=== PATIENT | female | born 1970 | race Caucasian/White ===

== ENCOUNTER 2021-12-02 08:00 | Outpatient (CLI) | payer OTHER ==
--- NOTE | 2021-12-02 17:05 | XRAY Report ---
PROCEDURE: Chest 2 View X-Ray INDICATIONS: SHORTNESS OF BREATH TECHNIQUE: 2 view(s) of the chest. COMPARISON: None. FINDINGS: Surgical changes and devices: ACDF in the lower cervical spine.. Lungs and pleura: No pleural effusions or pneumothorax. Lungs are clear. Mediastinum: Mediastinal contours are normal. Heart size is normal. Bones and chest wall: No suspicious bony abnormalities. Soft tissues appear unremarkable. IMPRESSION: No acute cardiopulmonary abnormality. Reviewed by: Tyler Del Rosario on 12/02/2021 4:03 PM ARIANNE Approved by: Tyler Del Rosario on 12/02/2021 4:03 PM ARIANNE Station ID: [id number]
== END 2021-12-02 23:59 | disposition home or self-care (01) ==
LOC: DI.S 08:00
PROVIDERS: ATTEND Physician Assistant
DX: R06.02 Shortness of breath (principal)

== ENCOUNTER 2022-08-04 08:42 | Outpatient (CLI) | payer OTHER | END 2022-08-04 23:45 | disposition critical access hospital (66) | LOC: EMS 08:42 | DX: M54.2 Cervicalgia (principal); V48.5XXA Car driver injured in noncollision transport accident in traffic accident, initial encounter; Y92.413 State road as the place of occurrence of the external cause | CPT/HCPCS: A0425; A0429 ==

== ENCOUNTER 2022-08-04 08:59 | Emergency (ER) | payer OTHER ==
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
[2022-08-04 09:52] VITALS: BP 148/99
== END 2022-08-04 09:53 | disposition home or self-care (01) ==
LOC: EDUNIT# → ED 08:59
DX: Z04.1 Encounter for examination and observation following transport accident (principal); V49.3XXA Car occupant (driver) (passenger) injured in unspecified nontraffic accident, initial encounter
CPT/HCPCS: 99282; 99283

== ENCOUNTER 2022-10-08 16:14 | Outpatient (CLI) | payer OTHER ==
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
== END 2022-10-08 16:15 | disposition home or self-care (01) ==
LOC: DI.S 16:14
PROVIDERS: ATTEND Chiropractor
DX: M47.817 Spondylosis without myelopathy or radiculopathy, lumbosacral region (principal); M43.16 Spondylolisthesis, lumbar region; M43.17 Spondylolisthesis, lumbosacral region; M47.816 Spondylosis without myelopathy or radiculopathy, lumbar region

== ENCOUNTER 2022-11-07 12:16 | Emergency (ER) | payer OTHER ==
[2022-11-07 12:46] LABS: BASOPHILS % (AUTO) 0.3 %; EOSINOPHILS # (AUTO) 0.1 10^3/uL (0.0-0.7); EOSINOPHILS % (AUTO) 0.7 %; HCT - HEMATOCRIT 41.5 % (37.0-47.0); LYMPHOCYTES # (AUTO) 2.3 10^3/uL (1.5-3.5); LYMPHOCYTES % (AUTO) 15.9 %; MEAN CORPUSCULAR HGB CONC 33.7 g/dL (32.0-36.0); MEAN CORPUSCULAR VOLUME 91.8 fL (81.0-99.0); MEAN PLATELET VOLUME 10.7 fL (7.9-10.8); MONOCYTES # (AUTO) 1.2 10^3/uL (0.0-1.0); MONOCYTES % (AUTO) 8.3 %; NEUTROPHILS % (AUTO) 74.4 %; PLT - PLATELET COUNT 316 10^3/uL (130-450); RED BLOOD COUNT 4.52 10^6/uL (4.20-5.40); RED CELL DISTRIBUTION WIDTH 12.3 % (12.0-15.0); WHITE BLOOD COUNT 14.7 x10^3/uL (4.8-10.8)
[2022-11-07 12:51] LABS: ALBUMIN 4.5 g/dL (3.2-5.5); ALBUMIN/GLOBULIN RATIO 1.5 (1.0-2.2); BILIRUBIN,TOTAL 1.3 mg/dL (0.2-1.0); CALCIUM 9.5 mg/dL (8.5-10.3); CREATININE 0.8 mg/dL (0.4-1.0); POTASSIUM 3.8 mmol/L (3.5-5.0); TOTAL PROTEIN 7.5 g/dL (6.7-8.2)
[2022-11-07] MEDS ORDERED: KETOROLAC 15 MG/ML VIAL IVP STA (13:00)
--- NOTE | 2022-11-07 13:01 | ED Physician Documentation ---
PD HPI ABD PAIN - Stated complaint Stated Complaint: ABD PX - Chief complaint Chief Complaint: Abd Pain - History obtained from History obtained from: Patient - Additional information Additional information: 52-year-old woman has had chronic issues with abdominal pain which is more severe over the last 2 days. It is in the left lower quadrant and very sharp. Hurts to walk or bend over. She has chronically abnormal bowel movements and was post to have a colonoscopy a few years ago for it but "chickened out" because she does not like medical stuff. She denies fevers or chills but does feel hot with this. PD PAST MEDICAL HISTORY - Present Medications Home Medications: Ambulatory Orders Medication Instructions Recorded Confirmed Amox/Clav 875/125 [Augmentin] 1 each PO TID #21 tablet 11/07/22 - Allergies Allergies/Adverse Reactions: Allergies Allergy/AdvReac Type Severity Reaction Status Date / Time No Known Drug Allergies Allergy Verified 08/04/22 09:18 PD ED PE NORMAL - Vitals Vital signs reviewed: Yes - General General: Alert and oriented X 3, No acute distress - Abdomen Abdomen: Other (Decreased bowel sounds and somewhat distended with moderate tenderness in the left lower quadrant without surgical signs.) - Back Back: No spinal TTP - Derm Derm: No rash - Neuro Neuro: Alert and oriented X 3, Normal speech Results - Vitals Vitals: Vital Signs - 24 hr 11/07/22 11/07/22 12:23 14:46 Temperature 36.9 C 37.2 C Heart Rate 90 95 Respiratory 18 18 Rate Blood Pressure 137/105 H 152/97 H O2 Saturation 97 100 Oxygen O2 Source Room air - Labs Labs: Laboratory Tests 11/07/22 11/07/22 11/07/22 12:35 12:35 13:24 WBC 14.7 H RBC 4.52 Hgb 14.0 Hct 41.5 MCV 91.8 MCH 31.0 MCHC 33.7 RDW 12.3 Plt Count 316 MPV 10.7 Neut # (Auto) 11.0 H Lymph # (Auto) 2.3 [place] # (Auto) 1.2 H Eos # (Auto) 0.1 Baso # (Auto) 0.0 Absolute Nucleated RBC 0.00 Nucleated RBC % 0.0 Sodium 138 Potassium 3.8 Chloride 101 Carbon Dioxide 29 Anion Gap 8.0 BUN 11 Creatinine 0.8 Estimated GFR (MDRD) 76 L Glucose 109 H Calcium 9.5 Total Bilirubin 1.3 H AST 103 H ALT 89 H Alkaline Phosphatase 53 Total Protein 7.5 Albumin 4.5 Globulin 3.0 Albumin/Globulin Ratio 1.5 Lipase 24 Urine Color YELLOW Urine Clarity CLEAR Urine pH 6.5 Ur Specific [place] 1.020 Urine Protein NEGATIVE Urine Glucose (UA) NEGATIVE Urine Ketones TRACE Urine Occult Blood TRACE-INTA Urine Nitrite NEGATIVE Urine Bilirubin NEGATIVE Urine Urobilinogen 0.2 (NORMAL) Ur Leukocyte Esterase TRACE H Urine RBC 0-5 Urine WBC 0-3 Ur Squamous Epith Cells MOD Squamous H Urine Bacteria Few Ur Microscopic Review INDICATED Urine Culture Comments NOT INDICATED - Rads (name of study) CT of the abdomen pelvis showing acute sigmoid diverticulitis. She also has hepatic steatosis which the radiologist did not comment on. Relevant Findings:: Final report received, EMP independent interpretation of sanam MARIN Medical Decision Making - ED course ED course: 52-year-old woman with left lower quadrant pain found to have diverticulitis. S he also has incidentally found issues in the low back and fatty liver which were discussed with her. Need for follow-up for colonoscopy was discussed and she verbalizes understanding. We also discussed short and long-term dietary recommendations. Departure - Departure Disposition: Home, Self Care Clinical Impression: Diverticulitis of gastrointestinal tract Condition: Good Record reviewed to determine appropriate education?: Yes Instructions: Diet Low Residue, ED Diverticulitis Follow-Up: Valentin Sanz MD [Provider Admit Priv/Credential] - Prescriptions: Amox/Clav 875/125 [Augmentin] 1 each PO TID #21 tablet Comments: You were seen today for diverticulitis. Again I would recommend a clear liquid diet for the next 24 hours, subsequent to that a low residue diet for another 24 hours then slowly advancing your diet back to normal after that. You should have a colonoscopy again, not too soon, at least 2 months out but probably with in 4 to 6 months. The surgeon listed on this form is excellent and you could call his office for an appointment for that. Return for new or worsening symptoms. Forms: Activity restrictions Discharge Date/Time: 11/07/22 14:46
[2022-11-07] MEDS ORDERED: iohexoL-300 100 ML VIAL ONE (13:09)
[2022-11-07 13:30] LABS: BILIRUBIN,URINE NEGATIVE (NEGATIVE); GLUCOSE, URINE (UA) NEGATIVE (NEGATIVE); KETONES,URINE (UA) TRACE mg/dL (NEGATIVE); LEUKOCYTE ESTERASE, URINE TRACE (NEGATIVE); NITRITE,URINE NEGATIVE (NEGATIVE); OCCULT BLOOD,URINE TRACE-INTA (NEGATIVE); PH,URINE 6.5 PH (5.0-7.5); PROTEIN,URINE NEGATIVE (NEGATIVE); UROBILINOGEN,URINE 0.2 (NORMAL) E.U./dL (NORMAL)
[2022-11-07 13:31] LABS: CLARITY,URINE CLEAR (CLEAR)
[2022-11-07 13:46] LABS: RBC,URINE 0-5 /HPF (0-5); WBC,URINE 0-3 /HPF (0-5)
[2022-11-07 13:47] LABS: BACTERIA,URINE Few /HPF (None Seen); SQUAMOUS EPITHELIAL CELL,UR MOD Squamous (<= Few)
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
[2022-11-07 14:49] VITALS: BP 152/97
[2022-11-07] MEDS ORDERED: iohexoL-300 100 ML VIAL IVP ONE (15:03)
== END 2022-11-07 14:46 | disposition home or self-care (01) ==
LOC: ED 12:16
DX: K57.32 Diverticulitis of large intestine without perforation or abscess without bleeding (principal)
CPT/HCPCS: 36415; 74177; 80053; 81001; 83690; 85025; 96374; 99284; Q9967; 81003; 87086